=== PATIENT | male | born 1975 | race Hispanic/Latino ===

== ENCOUNTER → 2019-01-14 | Outpatient (CLI) | payer OTHER | END | disposition home or self-care (01) | LOC: OIH 09:54 | PROVIDERS: ATTEND Internal Medicine | DX: Z13.6 Encounter for screening for cardiovascular disorders (principal) | CPT/HCPCS: 75571 ==

== ENCOUNTER → 2024-12-26 | Outpatient (CLI) | payer SELFPAY ==
[~2024-12-26] MED LIST: IOHEXOL-350 50ML VIAL IV ONE
--- NOTE | 2024-12-27 13:08 | HMCIMG ---
EXAM: CT Brain without and with contrast CLINICAL HISTORY: Headache. TECHNIQUE: Thin collimated axial CT images of the brain were obtained with sagittal and coronal reformatted images also submitted. CT scan done according to ALARA (As Low as Reasonably Achievable). CONTRAST USED: Without and with contrast . COMPARISON: None provided. FINDINGS: No acute intracranial abnormality is present. No abnormal post-contrast enhancement. No acute cortical infarction, hemorrhage, mass or mass effect. No hydrocephalus or abnormal extra-axial fluid collections. The posterior fossa is unremarkable. The skull base and calvarium are intact. The included portions of the paranasal sinuses and mastoid air cells are clear. IMPRESSION: 1. No acute intracranial abnormality is present. 2. No abnormal post-contrast enhancement. /Kiron
== END | disposition home or self-care (01) ==
LOC: RAH 10:53
PROVIDERS: ATTEND Emergency Medicine
DX: R51.9 Headache, unspecified (principal)
CPT/HCPCS: 70470; Q9967